=== PATIENT | female | born 1980 | race Caucasian/White ===

== ENCOUNTER 2020-04-29 14:02 | Emergency (ER) | payer SELFPAY ==
[2020-04-29 14:13] VITALS: BP 124/69; PULSE 100; RESP 16; TEMP 36.3; O2SAT 98; BMI 26.5
--- NOTE | 2020-04-29 14:19 | DI.RAD.S_ITS ---
PROCEDURE: XR KNEE LT 3V INDICATIONS: left knee pain aswelling TECHNIQUE: 3 views of the knee were acquired. COMPARISON: None. FINDINGS: Bones: No fractures or dislocations. No suspicious bony lesions. No significant degenerative changes of the knee are appreciated. Soft tissues: There is a knee joint effusion. Small calcific/ossific density is identified within the suprapatellar region on the lateral view that is more lateral in position on the frontal view to be located within the joint, which may represent sequela from prior injury. IMPRESSION: 1. No fracture or significant degenerative changes of the knee. 2. Knee joint effusion. If there is clinical concern for internal derangement, please consider MRI for further evaluation. Dictated by: Adalberto Bronson M.D. on 04/29/2020 at 13:40 Approved by: Adalberto Bronson M.D. on 04/29/2020 at 13:41
[2020-04-29] MEDS: LIDOCAINE PATCH 1 EACH ADH..PATCH TOP (18:25)
[2020-04-29] MEDS: HYDROCODONE/ACET 5/325 TABLET 1 TAB PO (18:25)
--- NOTE | 2020-04-29 19:20 | ED.LOWEXIN ---
HPI - Extremity Injury (Lower) <CORNELL Stark-BC - Last Filed: 04/29/20 19:27> General Chief Complaint: Extremity Injury, Lower Stated Complaint: Left knee blown out about a week ago Time Seen by Provider: 04/29/20 17:34 Source: patient Mode of arrival: Ambulatory Limitations: no limitations History of Present Illness HPI Narrative: The patient is a 39-year-old female current smoker with history of asthma who presents with a chief complaint of left knee pain. She states 2 days ago, she felt a pop in her left knee. She had some pain prior to that, has been using Tylenol Motrin. She denies any specific fall or twist, but does note the pop a few days ago. She denies any previous injuries to her knee. She also requests a refill of her ProAir she is worried she is going to be out of it. She does state have she has a history of asthma, currently has no respiratory complaints. Related Data Previous Rx's Medication Instructions Recorded albuterol sulfate [ProAir HFA] 2 puff INHALATION Q4-6H PRN #18 04/29/20 gram ketorolac 10 mg PO TID PRN #15 tab 04/29/20 lidocaine 1 patch TOP DAILY PRN #15 each 04/29/20 Allergies Allergy/AdvReac Type Severity Reaction Status Date / Time Sulfa (Sulfonamide AdvReac Severe Rash Verified 04/29/20 14:18 Antibiotics) Review of Systems <CORNELL Stark-BC - Last Filed: 04/29/20 19:27> Review of Systems Narrative: GENERAL: Denies chills, fatigue, malaise, fever, sweats. HEENT: Denies sinus pain, ear pain, sore throat, difficulty swallowing, dizziness. RESPIRATORY: Denies dyspnea, cough, wheezing, hemoptysis, sputum. CARDIOVASCULAR: Denies chest pain, palpitations, orthopnea, edema, GASTROINTESTINAL: Denies nausea, vomiting, abdominal pain, diarrhea, constipation, melena. : Denies dysuria, frequency, incontinence, hematuria, urinary retention. MUSCULOSKELETAL: See HPI SKIN: Denies rash, skin lesions, or other NEUROLOGIC: Denies weakness, headache, numbness, change in speech, confusion, seizures, incoordination. PSYCHIATRIC: No concerning psychosocial issues. 12 point review of systems is negative except for those stated above Patient History <CHERELLE Stark - Last Filed: 04/29/20 19:27> Medical History (Updated 04/29/20 @ 19:21 by CHERELLE Stark) Asthma (Acute) Social History Smoking Status: Current every day smoker Smoking Status: Current every day smoker alcohol intake frequency: a few times a month Substance Use Type: does not use Exam <CHERELLE Stark - Last Filed: 04/29/20 19:27> Narrative Exam Narrative: GENERAL: This is a well-nourished, well-developed patient, in no acute distress HEAD: Atraumatic. Normocephalic. No temporal or scalp tenderness. EYES: Pupils equal round and reactive. Extraocular motions intact. No scleral icterus. No injection or drainage. ENT: Nose without bleeding, purulent drainage or septal hematoma. Throat without erythema, tonsillar hypertrophy or exudate. Uvula midline. Airway patent. NECK: Trachea midline. No JVD or lymphadenopathy. Supple, nontender, no meningeal signs. CARDIOVASCULAR: Regular rate and rhythm RESPIRATORY: Clear to auscultation. Breath sounds equal bilaterally. No wheezes, rales, or rhonchi. No cough. No increased respiratory effort. No accessory muscle use. EXTREMITIES: General pain to palpation left knee. Able to lift entire leg off stretcher. Reduced flexion left knee. Negative varus valgus, pain on Boby's. Unable to tolerate anterior posterior drawer. Positive pedal pulses bilaterally for BACK: Nontender without deformity or crepitance. No flank tenderness. NEURO: AOx3. SKIN: No rash or erythema on visible skin. No erythema laceration or abrasion noted of left knee. Initial Vital Signs Initial Vital Signs: Vital Signs Temperature 97.3 F L 04/29/20 14:13 Pulse Rate 100 H 04/29/20 14:13 Respiratory Rate 16 04/29/20 14:13 Blood Pressure 124/69 04/29/20 14:13 Pulse Oximetry 98 04/29/20 14:13 <Mary Soto DO - Last Filed: 05/02/20 08:19> Initial Vital Signs Initial Vital Signs: Vital Signs Temperature 97.3 F L 04/29/20 14:13 Pulse Rate 100 H 04/29/20 14:13 Respiratory Rate 16 04/29/20 14:13 Blood Pressure 124/69 04/29/20 14:13 Pulse Oximetry 98 04/29/20 14:13 Scores <CHERELLE Stark - Last Filed: 04/29/20 19:27> GCS [place] coma scale eye opening: Spontaneous Henry coma scale verbal response: Orientated Henry coma scale motor response: Obey commands [place] coma scale total score: 15 Course <CHERELLE Stark - Last Filed: 04/29/20 19:27> Orders Ordered: Discontinued Medications Hydrocodone Bitart/Acetaminophen ([place] 5/325) 1 tab PO NOW ONE Stop: 04/29/20 17:55 Last Admin: 04/29/20 18:25 Dose: 1 tab Documented by: BTONER Lidocaine (Lidoderm) 1 each TOP NOW ONE Stop: 04/29/20 17:55 Last Admin: 04/29/20 18:25 Dose: 1 each Documented by: BTONER Vital Signs Vital signs: Vital Signs - 8 hr 04/29/20 14:13 Temperature 97.3 F L Pulse Rate 100 H Respiratory Rate 16 Blood Pressure 124/69 Pulse Oximetry 98 <Mary Soto DO - Last Filed: 05/02/20 08:19> Orders Ordered: Discontinued Medications Hydrocodone Bitart/Acetaminophen ([place] 5/325) 1 tab PO NOW ONE Stop: 04/29/20 17:55 Last Admin: 04/29/20 18:25 Dose: 1 tab Documented by: BTONER Lidocaine (Lidoderm) 1 each TOP NOW ONE Stop: 04/29/20 17:55 Last Admin: 04/29/20 18:25 Dose: 1 each Documented by: BTONER Vital Signs Vital signs: Vital Signs - 8 hr 04/29/20 14:13 Temperature 97.3 F L Pulse Rate 100 H Respiratory Rate 16 Blood Pressure 124/69 Pulse Oximetry 98 MDM - Extremity Injury (Lower) <CHERELLE Stark - Last Filed: 04/29/20 19:27> Imaging Data Extremity x-ray #1: Radiologist's Impression: [address] [place] [id number] XRay Report Signed Patient: Lidia Nogueraerine EMR#: [id number] : 1980Acct:[id number] Age/Sex: 39 / FDate of Service: 04/29/20 Loc: ED Accession Number: [id number] Procedure: XR knee LT 3V Ordering Provider: Mary Soto D.O. PROCEDURE: XR KNEE LT 3V INDICATIONS: left knee pain aswelling TECHNIQUE: 3 views of the knee were acquired. COMPARISON: None. FINDINGS: Bones: No fractures or dislocations. No suspicious bony lesions. No significant degenerative changes of the knee are appreciated. Soft tissues: There is a knee joint effusion. Small calcific/ossific density is identified within the suprapatellar region on the lateral view that is more lateral in position on the frontal view to be located within the joint, which may represent sequela from prior injury. IMPRESSION: 1. No fracture or significant degenerative changes of the knee. 2. Knee joint effusion. If there is clinical concern for internal derangement, please consider MRI for further evaluation. Dictated by: Adalberto Bronson M.D. on 04/29/2020 at 13:40 Approved by: Adalberto Bronson M.D. on 04/29/2020 at 13:41 [facility] Narrative Medical decision making narrative: The patient is a 39-year-old female who presents with a chief complaint of left knee pain. She has no acute findings on x-ray, those noted to have a knee effusion. She is neurovascular intact her stay in the emergency department feels much improved after the above-stated therapies. I encouraged follow-up with primary care provider in the next few days as she may need further evaluation, repeat imaging physical therapy etcetera. The patient did request a refill of her albuterol, she is not wheezy at this time, however given that albuterol is a rescue medication I am willing to provider refill. Patient has no questions or concerns upon discharge and states understanding return precautions as well as follow-up care. Discharge Plan Departure Patient Disposition: Home Clinical Impression: Encounter for medication refill Acute knee pain Qualifiers: Laterality: left Qualified Code(s): M25.562 - Pain in left knee Discharge Date/Time: 04/29/20 19:46 Instructions: DI for Knee Sprain, How To Perform RICE (Rest, Ice, Compress, Elevate), DI for Knee Pain Activity Restrictions/Additional Instructions: Thank you for trusting us with your care today. As I discussed, your x-ray shows no acute fracture. This does not rule out a soft tissue injury such as a ligament or tendon injury. It is important that you follow up with primary care provider, especially if worsening or no improvement. There can be fractures that did not show up on initial x-ray. As I discussed, is important that you follow-up with primary care provider as I am suspicious of a soft tissue injury. I have given contact information to the [facility] health information resources manager. I also gave you a prescription for a ProAir refill. I have given you a prescription of Toradol. This is an NSAID. Do not combine it with other NSAIDs such as Aleve or ibuprofen. I suggest taking it with some food, as it can irritate your stomach. Prescriptions: New ketorolac 10 mg tablet 10 mg PO TID PRN (Reason: pain) Qty: 15 RF: 0 albuterol sulfate [ProAir HFA] 90 mcg/actuation HFA aerosol inhaler 2 puff INHALATION Q4-6H PRN (Reason: shortness of breath or wheezing) Qty: 18 RF: 0 lidocaine 5 % adhesive patch,medicated 1 patch TOP DAILY PRN (Reason: pain) Qty: 15 RF: 0 Referrals: [facility] [Outside] <Mary Soto DO - Last Filed: 05/02/20 08:19> Cosign ED Attending Kristinaature Attestation: I was immediately available in the department for consultation. Documentation has been reviewed. I agree with assessment and plan.
[2020-04-29 19:45] VITALS: BP 129/73; PULSE 92; O2SAT 98
== END 2020-04-29 19:46 | disposition home or self-care (01) ==
PROVIDERS: Emergency Provider Nurse Practitioner Family
DX: M25.562 Pain in left knee (principal); Z76.0 Encounter for issue of repeat prescription
CPT/HCPCS: 73562; 99283

== ENCOUNTER 2020-07-07 11:34 | Emergency (ER) | payer SELFPAY ==
[2020-07-07 11:35] VITALS: BP 124/90; PULSE 104; RESP 16; TEMP 36.6; O2SAT 100
--- NOTE | 2020-07-07 11:54 | ED_ITS ---
HPI - Recheck/Abnormal Lab/Rx <Yulia Carmichael PA-C - Last Filed: 07/07/20 12:32> General Chief Complaint: Recheck/Abnormal Lab/Rx Stated Complaint: panic attack, really low on her meds Time Seen by Provider: 07/07/20 11:54 Source: patient Mode of arrival: Ambulatory Limitations: no limitations History of Present Illness HPI narrative: 40-year-old woman with a history of asthma, panic attacks and general anxiety presents with complaints of a panic attack this morning with symptoms of heart racing, chest pressure, abdominal pain and fear consistent with her historic panic attacks. She has been dealing with severe panic attacks for over 10 years, and has been taking clonazepam for the past 2+ years. She states she has tried multiple other medications including anti anxiety and an tidepression medications she also has done counseling regularly. She moved to the area from [place] a couple months ago and is working to establish care she currently has an appointment set up for [facility] for primary care and mental health care on July 21. She is starting a new job in 2 days and has been having worse anxiety related to this. She also has been gradually trying to decrease her dose of clonazepam she was taking up to 4 mg a day and was prescribed 120 mg at her last prescription from her doctor in [place], she has been trying to get by with smaller amounts over the past month. She is concerned that she only has 2 of her pills left and her appointment is not until the 21 of July, with starting a new job she is very concerned that she is going to continue to have panic attacks as she did this morning. She denies any current chest pain, abdominal pain, chest pressure, palpitations, difficulty breathing or any other symptoms, states that her symptoms this morning with her panic attack were no different than previous panic attacks.. She states that she has current medications for her Symbicort and albuterol inhaler does not need these refilled. complaint: medication refill request and other (anxiety, panic attack) Onset/Timin Initial visit (ago): hour(s) Returns today for: request for prescription Associated symptoms: none Related Data Home Medications Medication Instructions Recorded Confirmed clonazepam 1 mg PO QID 07/07/20 07/07/20 Previous Rx's Medication Instructions Recorded albuterol sulfate [ProAir HFA] 2 puff INHALATION Q4-6H PRN #18 04/29/20 gram clonazepam 1 mg PO BID #30 tab MDD 4mg 07/07/20 Allergies Allergy/AdvReac Type Severity Reaction Status Date / Time Sulfa (Sulfonamide AdvReac Severe Rash Verified 07/07/20 12:01 Antibiotics) Review of Systems <Yulia Carmichael PA-C - Last Filed: 07/07/20 12:32> Review of Systems Narrative: GENERAL: Denies chills, fatigue, malaise, fever, sweats. HEENT: Denies sinus pain, ear pain, sore throat, difficulty swallowing, dizziness. RESPIRATORY: Denies dyspnea, cough, wheezing, hemoptysis, sputum. CARDIOVASCULAR: Positive for chest pain/tightness with panic attacks, positive for palpitations with panic attacks, orthopnea, edema, GASTROINTESTINAL: Denies nausea, vomiting, positive for abdominal pain/tightness and squeezing when she is having a panic attack, negative for diarrhea, const ipation, melena. : Denies dysuria, frequency, incontinence, hematuria, urinary retention. MUSCULOSKELETAL: denies weakness, joint pain, or bony pain SKIN: Denies rash, skin lesions, or other NEUROLOGIC: Denies weakness, headache, numbness, change in speech, confusion, seizures, incoordination. PSYCHIATRIC: Positive for generalized anxiety, fear with panic attacks, No concerning psychosocial issues. 12 point review of systems is negative except for those stated above Patient History <Yulia Carmichael PA-C - Last Filed: 07/07/20 12:32> Medical History Asthma (Acute) Social History Smoking Status: Current every day smoker Smoking Status: Current every day smoker alcohol intake frequency: a few times a month Substance Use Type: does not use Exam <Yulia Carmichael PA-C - Last Filed: 07/07/20 12:32> Narrative Exam Narrative: GENERAL: 40 year old patient appears stated age. Well-nourished, well-developed patient, in mild distress. HEAD: Atraumatic. Normocephalic. EYES: Pupils equal round and reactive. Extraocular motions intact. No scleral icterus. No injection or drainage. ENT: Nose without bleeding, purulent drainage. Throat without erythema, tonsillar hypertrophy or exudate. Airway patent. NECK: Trachea midline. Non tender CARDIOVASCULAR: Regular rate and rhythm without murmurs, gallops, or rubs. RESPIRATORY: Clear to auscultation. Breath sounds equal bilaterally. No wheezes, rales, or rhonchi. GASTROINTESTINAL: Abdomen soft, non-tender, nondistended. EXTREMITIES: No edema or joint tenderness. BACK: Nontender without deformity or crepitance. No flank tenderness. NEURO: AOx3. SKIN: No rash or erythema of visible areas Initial Vital Signs Initial Vital Signs: Vital Signs Temperature 97.8 F 07/07/20 11:35 Pulse Rate 104 H 07/07/20 11:35 Respiratory Rate 16 07/07/20 11:35 Blood Pressure 124/90 07/07/20 11:35 Pulse Oximetry 100 07/07/20 11:35 <Mary Soto DO - Last Filed: 07/09/20 07:08> Initial Vital Signs Initial Vital Signs: Vital Signs Temperature 97.8 F 07/07/20 11:35 Pulse Rate 104 H 07/07/20 11:35 Respiratory Rate 16 07/07/20 11:35 Blood Pressure 124/90 07/07/20 11:35 Pulse Oximetry 100 07/07/20 11:35 Scores <Yulia Carmichael PA-C - Last Filed: 07/07/20 12:32> GCS [place] coma scale eye opening: Spontaneous [place] coma scale verbal response: Orientated [place] coma scale motor response: Obey commands [place] coma scale total score: 15 Course <Yulia Carmichael PA-C - Last Filed: 07/07/20 12:32> Course Course Narrative: Patient had a pill bottle with her with prescription in her name for 1 mg up to 4 times daily, 120 mg total from a previous provider. Vital Signs Vital signs: Vital Signs - 8 hr 07/07/20 11:35 Temperature 97.8 F Pulse Rate 104 H Respiratory Rate 16 Blood Pressure 124/90 Pulse Oximetry 100 <Mary Soto DO - Last Filed: 07/09/20 07:08> Vital Signs Vital signs: Vital Signs - 8 hr 07/07/20 11:35 Temperature 97.8 F Pulse Rate 104 H Respiratory Rate 16 Blood Pressure 124/90 Pulse Oximetry 100 [facility] - Recheck/Abnormal Lab/Rx <Yulia Carmichael PA-C - Last Filed: 07/07/20 12:32> Differential Diagnosis Differential diagnosis: Likely encounter for medication refill and other (Anxiety, panic attacks) Medical Records Attestation: I reviewed the patient's medical records. [facility] Narrative Medical decision making narrative: Well-appearing 40-year-old with history of asthma, anxiety and panic attacks presents with concern for panic attack this morning, and running very low on her anxiety and panic attack medication, c lonazepam. Both RN and myself discussed the fact that this addictive medication is not something we typically prescribe for patients from the emergency department, and is really not an ideal long-term medication for this as there are other options out there. Patient has been on medication for 2 years, presents with a prescription pill bottle for 120 mg up to 4 times daily. She had a panic attack this morning, has been taking smaller doses of her medication recently due to running low, starting a new job in 2 days and has a new provider appointment scheduled for mid July in 2 weeks. Given her appropriateness, history, and previous prescription, and the fact that I do not want her to go into withdrawals, I did prescribe a 1mg BID as needed 2 week prescription for clonazepam to get her to her scheduled appointment at [facility]. She has tried multiple other medications, and has been doing counseling for her anxiety and panic attacks for many years. I do not suspect any acute illness that would require workup with labs or imaging today. Emergency return precautions provided, all questions answered. Discharge Plan Departure Patient Disposition: Home Clinical Impression: Encounter for medication refill, Anxiety, Panic attacks Discharge Date/Time: 07/07/20 12:30 Activity Restrictions/Additional Instructions: Thank you for letting us to be part of your care in the emergency department today. After our discussion I have prescribed do a short course of clonazepam to help with your panic disorder and anxiety, because you have an appointment scheduled and are establishing care with a PCP/mental health in the next 2 weeks. As we discussed this is an addictive medication, and you have been on it for some time you should continue to explore other options for your panic disorder and anxiety with your new providers. There is no evidence of an emergent or life threatening illness at this time, but follow up with your doctor in 1-2 days is recommended nonetheless to continue to rule out serious underlying causes of your symptoms. Please call the office for an appointment. Please return to the Emergency Department for any worsening or persistent symptoms. Please take medications as directed. Prescriptions: New clonazepam 1 mg tablet 1 mg PO BID MDD 4mg Qty: 30 RF: 0 No Action clonazepam 1 mg Tablet 1 mg PO QID RF: 0 albuterol sulfate [ProAir HFA] 90 mcg/actuation HFA aerosol inhaler 2 puff INHALATION Q4-6H PRN (Reason: shortness of breath or wheezing) Qty: 18 RF: 0 <Mary Soto DO - Last Filed: 07/09/20 07:08> [facility] Kristinaature Attestation: I was immediately available in the department for consultation. Documentation has been reviewed. I agree with assessment and plan.
== END 2020-07-07 12:30 | disposition home or self-care (01) ==
PROVIDERS: Emergency Provider Student in an Organized Health Care Education/Training Program
DX: F41.0 Panic disorder [episodic paroxysmal anxiety] (principal); Z76.0 Encounter for issue of repeat prescription
CPT/HCPCS: 99281

== ENCOUNTER → 2020-12-10 08:22 | Outpatient (CLI) | payer OTHER, SELFPAY ==
--- NOTE | 2020-12-10 08:24 | DI.RAD.S_ITS ---
PROCEDURE: XR CERVICAL SPINE 2V OR 3V INDICATIONS: Chronic neck pain TECHNIQUE: 3 view(s) of the cervical spine were acquired. COMPARISON: None. FINDINGS: Bones: No fractures or dislocations to the T1 level. The lateral masses of C1 appear intact on the odontoid view. No suspicious bony lesions. There is slight anterolisthesis of C4 on C5 and moderately severe degenerative disc disease of C5 on C6 with slight retrolisthesis at this level. Soft tissues: No prevertebral soft tissue swelling. IMPRESSION: No prior trauma found. Moderately severe degenerative disc disease C5-6 with a slight degree of grade 1 retrolisthesis of C5 on C6 and at the C4-C5 level there is also slight grade 1 anterolisthesis noted. Obtaining flexion and extension imaging may be warranted to assess for instability given these findings. Dictated by: Vinny Padilla M.D. on 12/10/2020 at 9:41 Approved by: Vinny Padilla M.D. on 12/10/2020 at 9:43
== END ==
PROVIDERS: PCP Family Medicine; Referring Provider Family Medicine; Visit Provider Family Medicine
DX: M50.322 Other cervical disc degeneration at C5-C6 level (principal); G89.29 Other chronic pain
CPT/HCPCS: 72040

== ENCOUNTER → 2020-12-22 08:34 | Outpatient (CLI) | payer OTHER, SELFPAY ==
[2020-12-22 10:55] LABS: Urine N gonorrhoeae NOT DETECTED
[2020-12-22 10:59] LABS: Urine Chlamydia NOT DETECTED
== END ==
PROVIDERS: PCP Family Medicine; Referring Provider Family Medicine; Visit Provider Family Medicine
DX: N89.8 Other specified noninflammatory disorders of vagina (principal)
CPT/HCPCS: 87491; 87591

== ENCOUNTER → 2021-01-05 08:44 | Outpatient (CLI) | payer OTHER, SELFPAY ==
--- NOTE | 2021-01-05 08:46 | DI.RAD.S_ITS ---
PROCEDURE: XR CERVICAL SPINE 4V OR 5V INDICATIONS: Severe neck pain with anterolisthesis and retrolisthesis TECHNIQUE: 5 views of the cervical spine were acquired. COMPARISON: [facility], , XR CERVICAL SPINE 2V OR 3V, 12/10/2020, 8:26. FINDINGS: Bones: No fractures or dislocations to the T1 level. No suspicious bony lesions. There is normal range of motion between flexion and extension, with preserved normal bony alignment. No change in malalignment, mild in severity, from the comparison study in December of 2020. Soft tissues: Prevertebral soft tissues are normal in thickness. IMPRESSION: The degenerative disc disease previously present and considered most prominent at C5-6 is associated with slight anterolisthesis of C4 on C5 and minimal retrolisthesis of C5 on C6. During flexion and extension imaging when compared to neutral position imaging there is no significant change in this alignment. Dictated by: Vinny Padilla M.D. on 01/05/2021 at 10:18 Approved by: Vinny Padilla M.D. on 01/05/2021 at 10:20
== END ==
PROVIDERS: PCP Family Medicine; Referring Provider Family Medicine; Visit Provider Family Medicine
DX: M47.812 Spondylosis without myelopathy or radiculopathy, cervical region (principal); M50.322 Other cervical disc degeneration at C5-C6 level
CPT/HCPCS: 72050

== ENCOUNTER 2021-05-27 08:06 | Emergency (ER) | payer OTHER, MEDICAID, SELFPAY ==
[2021-05-27] VITALS (8 sets, daily range): BP systolic 105–117; BP diastolic 56–70; PULSE 56–70; RESP 17–18; TEMP 36.1–36.6; O2SAT 95–100; BMI 27.3
--- NOTE | 2021-05-27 08:49 | DI.CT.S_ITS ---
PROCEDURE: CT CHEST ABD PEL W CON INDICATIONS: pelvic mass TECHNIQUE: After the administration of intravenous contrast, 5 mm thick sections acquired from the lung apices to the symphysis. 5 mm coronal and sagittal reformats were performed, with additional 7 mm MIP reformats through the lungs. For radiation dose reduction, the following was used: automated exposure control, adjustment of mA and/or kV according to patient size. COMPARISON: [facility], CT, CT ABDOMEN PELVIS WITH CONTRAST, 05/18/2021, 14:33. FINDINGS: Image quality: Excellent. CHEST: Lungs and pleura: No acute airspace opacities. No pleural effusions or pneumothorax. Central and peripheral airways appear patent and normal in caliber. Mediastinum: Heart size is normal. No pericardial effusion. No mediastinal or hilar adenopathy by size criteria. Thoracic aorta and central pulmonary arteries are normal in size. Esophagus is normal in caliber. No hiatal hernia. Chest wall: No axillary or supraclavicular adenopathy by size criteria. Thyroid gland is unremarkable.. ABDOMEN: Solid organs: Liver is normal in size and enhancement. Gallbladder is within normal limits. Biliary system is non dilated. Pancreas enhances normally. Spleen is normal in size and enhancement. No adrenal nodules. Kidneys demonstrate normal size and enhancement, without hydronephrosis. Peritoneum and bowel: Bowel loops demonstrate normal wall thickness and caliber. No free fluid or air. Appendix is visualized and is within normal limits. Nodes and vessels: No retroperitoneal or mesenteric adenopathy by size criteria. Aorta and inferior vena cava are normal in size. Miscellaneous: No ventral hernias. PELVIS: Genitourinary: Bladder wall thickness is normal. Patient's known large uterine mass arising from anterior wall of uterus is again seen currently measures up to 11.3 x 11.1 x 10.8 cm in largest transverse, AP and craniocaudal dimensions unchanged from prior study measuring at the same level series 6 image 107 and series 10 image 35. Heterogeneous contrast enhancement is noted within this lesion. No gross abnormality is seen in bilateral ovaries. Left ovarian cyst measures 1.9 cm is seen. Miscellaneous: No inguinal hernias or adenopathy. Bones: No suspicious bony lesions. No vertebral body compression fractures. IMPRESSION: 1. Again noted is large anterior wall uterine mass not significantly changed in size and appearance from previous CT study measuring at the same level. 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 2. Small left ovarian cyst as above. 3. No evidence of metastatic disease is seen in chest, abdomen or pelvis. No lymphadenopathy. Dictated by: Dustin Carrasquillo M.D. on 05/27/2021 at 10:30 Approved by: Dustin Carrasquillo M.D. on 05/27/2021 at 10:44
--- NOTE | 2021-05-27 08:54 | DI.CT.S_ITS ---
PROCEDURE: CT HEAD/BRAIN WO CON INDICATIONS: dizzy with mass TECHNIQUE: Noncontrast 4.5 mm thick angled axial sections acquired from the foramen magnum to the vertex, with coronal and sagittal reformats. For radiation dose reduction, the following was used: automated exposure control, adjustment of mA and/or kV according to patient size. COMPARISON: None. FINDINGS: Image quality: Excellent. CSF spaces: Basal cisterns are patent. No extra-axial fluid collections. Ventricles are normal in size and shape. Brain: No midline shift. No intracranial masses or hemorrhage. Florez-white matter interface is normal. Skull and face: Calvarium and visualized facial bones are intact, without suspicious lesions. Sinuses: Visualized sinuses and mastoids are clear. IMPRESSION: No acute intracranial abnormality. Dictated by: Bam Carter M.D. on 05/27/2021 at 9:53 Approved by: Bam Carter M.D. on 05/27/2021 at 9:54
[2021-05-27 09:07] LABS: Add Manual Diff / Slide Review NO; Basophils Absolute Auto 100 /uL (0-100); Basophils Percent Auto 1.5 % (0-2); Eosinophils Absolute Auto 400 /uL (0-450); Eosinophils Percent Auto 5.1 % (2-4); Hematocrit 43.4 % (36-46); Hemoglobin 14.5 g/dL (12.0-16.0); Lymphocytes Absolute Auto 2400 /uL (1100-4500); Lymphocytes Percent Auto 35.3 % (25-40); Mean Corpuscular HGB Conc 33.4 % (30-36); Mean Corpuscular Hemoglobin 30.3 PG (26-34); Mean Corpuscular Volume 90.7 fL (80-100); Monocytes Absolute Auto 500 /uL (0-900); Neutrophils Absolute Auto 3600 /uL (1500-7000); Neutrophils Percent Auto 51.1 % (50-75); Platelet Count 264 X10^3/uL (150-400); Red Blood Cell Count 4.78 X10^6/uL (4.0-5.2); Red Cell Distribution Width 13.7 % (11.6-14.8); White Blood Cell Count 6.9 X10^3/uL (4.5-11.0)
[2021-05-27] MEDS: KETOROLAC 30 MG/ML VIAL IV (09:12)
[2021-05-27] MEDS: SODIUM CHLORIDE 0.9% 1,000 ML 1000 ML IV (09:13)
[2021-05-27 09:15] LABS: Alanine Aminotransferase 35 IU/L (<35); Albumin 3.9 g/dL (3.5-5.0); Albumin Globulin Ratio 1.3 (1.0-2.8); Alkaline Phosphatase 37 U/L (38-126); Aspartate Aminotransferase 35 IU/L (14-36); BUN Creatinine Ratio 14.3 (6-22); Bilirubin Total 0.4 mg/dL (0.2-1.3); Blood Urea Nitrogen 9 mg/dL (7-17); Calcium 9.1 mg/dL (8.4-10.2); Carbon Dioxide 27 mmol/L (22-32); Chloride 108 mmol/L (98-107); Estimated Glomerular Filt Rate > 60.0 mL/min (>60); Globulin 2.9 g/dL (1.7-4.1); Glucose 91 mg/dL (70-100); HEMOLYSIS < 15 (0-50); Lipase 64 U/L (23-300); Potassium 4.2 mmol/L (3.4-5.1); Pregnancy Test Serum,Qual Negative (Negative); Sodium 137 mmol/L (137-145); Total Protein 6.8 g/dL (6.3-8.2)
[2021-05-27] MEDS: ONDANSETRON 4 MG/2 ML INJ IV (11:50)
[2021-05-27] MEDS: HYDROMORPHONE 0.5 MG INJ IV (11:50)
--- NOTE | 2021-05-27 12:01 | ED.ABDPAIN ---
HPI - Abdominal Pain General Chief Complaint: Abdominal Pain Stated Complaint: stomach bloating/mass 11cm/abd pain Time Seen by Provider: 05/27/21 08:39 Source: patient Mode of arrival: Ambulatory Limitations: no limitations History of Present Illness HPI narrative: Patient is a 40-year-old female presenting with abdominal pain. She states that she was recently diagnosed with 11 x [address] [facility] walk-in clinic. Not sure of the imaging that was done. She supposedly has an appointment to see a specialist and triage registered nurse possibly at [place] although she mention [facility] as well her insurance changed yesterday to [employer]. Today she is having increasing pain she denies any vaginal bleeding in fact she says her menstrual cycles completely often she has not had 1 in about 2 months. She denies any nausea or vomiting. She has no chest pain or shortness of breath. She has also noticed some dizziness and balance issues as well. She has not fallen. States she is dizzy frequently. Related Data Previous Rx's Medication Instructions Recorded fluticasone 100 mcg-salmeterol 50 1 inh INHALATION BID #60 ea 01/26/21 mcg/dose blistr powdr for inhalation (Advair Diskus) venlafaxine 75 mg capsule,extended 75 mg PO DAILY #90 cap 01/27/21 release 24 hr albuterol sulfate 90 mcg/actuation 2 puff INHALATION Q4-6H PRN #18 03/01/21 aerosol inhaler (ProAir HFA) gram clonazepam 1 mg tablet 1 mg PO TID PRN #90 tab 03/01/21 metronidazole 500 mg tablet 500 mg PO BID #14 tab 04/13/21 (Flagyl) tramadol 50 mg tablet 50 mg PO TID PRN #60 tab 05/16/21 hydrocodone 5 mg-acetaminophen 325 1 tab PO Q6H PRN #10 tab 05/27/21 mg tablet Allergies Allergy/AdvReac Type Severity Reaction Status Date / Time Sulfa (Sulfonamide AdvReac Severe Rash Verified 03/01/21 15:28 Antibiotics) Review of Systems Review of Systems Narrative: GENERAL: Denies chills, fatigue, malaise, fever, sweats, travel HEENT: Denies sinus pain, ear pain, sore throat, difficulty swallowing, neck pain RESPIRATORY: Denies dyspnea, cough, wheezing, hemoptysis, sputum. CARDIOVASCULAR: Denies chest pain, palpitations, orthopnea, edema GASTROINTESTINAL: See HPI [employer] OPERATOR: See HPI : Denies dysuria, frequency, incontinence, hematuria, urinary retention, flank pain. MUSCULOSKELETAL: Denies weakness, joint pain, or bony pain SKIN: No rash, no erythema, no pruritus NEUROLOGIC: + dizziness PSYCHIATRIC: No concerning psychosocial issues. 12 point review of systems is negative except for those stated above and HPI Patient History Medical History (Updated 05/27/21 @ 12:03 by Mary Soto DO) Asthma (~1989) Cervical radiculopathy Cervical spine degeneration Chronic back pain (~2000) Chronic headache Chronic neck pain Fibroids (~2014) Mixed anxiety and depressive disorder (~2008) Shoulder pain (~2019) Surgical History S/P wisdom tooth extraction Family History Father Acute Crohn's disease Social History Smoking Status: Current every day smoker Smoking Status: Current every day smoker alcohol intake frequency: a few times a month Substance Use Type: does not use Exam Initial Vital Signs Initial Vital Signs: Vital Signs Temperature 98 F 05/27/21 08:35 Pulse Rate 70 05/27/21 08:35 Respiratory Rate 17 05/27/21 08:35 Blood Pressure 117/65 05/27/21 08:35 Pulse Oximetry 99 05/27/21 08:35 GENERAL: Well-appearing, well-nourished and in no acute distress. HEENT: Head atraumatic,EOMI, pupils reactive, face symmetric, moist mucous membranes CARDIOVASCULAR: Regular rate and rhythm without murmurs, rubs or gallops. RESPIRATORY: Breath sounds equal bilaterally, no wheezes rales or rhonchi. ABDOMEN: Soft, nontender. Normoactive bowel sounds all 4 quadrants. No guarding or rebound. EXTREMITIES: Normal range of motion, no clubbing or edema. Neurovascularly intact NEUROLOGICAL: Alert and oriented x4.Normal gait and speech. SKIN: Warm, dry, no laceration, no petechiae, no rashes or lesions. Course Orders Ordered: ED Orders 05/27/21 08:35 Complete Blood Count AUTO DIFF Stat Comprehensive Metabolic Panel Stat Lipase Stat Test Serum,Qual Stat 05/27/21 08:49 CT chest abd pel w con Stat 05/27/21 08:54 CT head/brain wo con Stat Discontinued Medications Hydromorphone HCl (Hydromorphone 0.5 Mg Inj) 0.5 mg IV NOW ONE Stop: 05/27/21 11:44 Last Admin: 05/27/21 11:50 Dose: 0.5 mg Documented by: TARIQ Sodium Chloride (Normal Saline 0.9%) 1,000 mls @ 1,000 mls/hr IV BOLUS ONE Stop: 05/27/21 09:53 Last Infusion: 05/27/21 11:50 Dose: 0 mls/hr Documented by: Admin: 05/27/21 09:13 Dose: 1,000 mls/hr Documented by: TARIQ Ketorolac Tromethamine (Ketorolac 30 Mg/Ml Vial) 30 mg IV NOW ONE Stop: 05/27/21 08:55 Last Admin: 05/27/21 09:12 Dose: 30 mg Documented by: TARIQ Morphine Sulfate (Morphine 4 Mg/Ml Inj) 4 mg IV NOW ONE Stop: 05/27/21 11:35 Last Admin: 05/27/21 11:43 Dose: Not Given Documented by: TARIQ Ondansetron HCl (Ondansetron 4 Mg/2 Ml Inj) 4 mg IV NOW ONE Stop: 05/27/21 11:35 Last Admin: 05/27/21 11:50 Dose: 4 mg Documented by: TARIQ Vital Signs Vital signs: Vital Signs - 8 hr 05/27/21 08:35 05/27/21 08:37 05/27/21 09:00 Temperature 98 F Pulse Rate 70 63 59 L Respiratory Rate 17 Blood Pressure 117/65 106/70 Pulse Oximetry 99 100 97 05/27/21 09:30 05/27/21 09:49 05/27/21 09:50 Temperature Pulse Rate 66 57 L Respiratory Rate Blood Pressure 107/57 L Pulse Oximetry 100 95 05/27/21 09:52 05/27/21 11:15 Temperature 96.9 F L Pulse Rate 65 56 L Respiratory Rate 17 18 Blood Pressure 107/57 L 105/56 L Pulse Oximetry 98 100 MDM - Abdominal Pain Lab Data Result diagrams: 05/27/21 08:35 05/27/21 08:35 Labs: Lab Results 05/27/21 05/27/21 05/27/21 Range/Units 08:35 08:35 08:35 WBC 6.9 (4.5-11.0) X10^3/uL RBC 4.78 (4.0-5.2) X10^6/uL Hgb 14.5 (12.0-16.0) g/dL Hct 43.4 (36-46) % MCV 90.7 (80-100) fL MCH 30.3 (26-34) PG MCHC 33.4 (30-36) % RDW 13.7 (11.6-14.8) % Plt Count 264 (150-400) X10^3/uL Neut % (Auto) 51.1 (50-75) % Lymph % (Auto) 35.3 (25-40) % [place] % (Auto) 7.0 (3-14) % Eos % (Auto) 5.1 H (2-4) % Baso % (Auto) 1.5 (0-2) % Neut # (Auto) 3600 (2549-4643) /uL Lymph # (Auto) 2400 (7734-7523) /uL [place] # (Auto) 500 (0-900) /uL Eos # (Auto) 400 (0-450) /uL Baso # (Auto) 100 (0-100) /uL Sodium 137 (137-145) mmol/L Potassium 4.2 (3.4-5.1) mmol/L Chloride 108 H (98-107) mmol/L Carbon Dioxide 27 (22-32) mmol/L BUN 9 (7-17) mg/dL Creatinine 0.63 (0.52-1.04) mg/dL Estimated GFR > 60.0 (>60) mL/min BUN/Creatinine Ratio 14.3 (6-22) Glucose 91 (70-100) mg/dL Calcium 9.1 (8.4-10.2) mg/dL Total Bilirubin 0.4 (0.2-1.3) mg/dL AST 35 (14-36) IU/L ALT 35 H (<35) IU/L Alkaline Phosphatase 37 L (38-126) U/L Total Protein 6.8 (6.3-8.2) g/dL Albumin 3.9 (3.5-5.0) g/dL Globulin 2.9 (1.7-4.1) g/dL Albumin/Globulin Ratio 1.3 (1.0-2.8) Lipase 64 (23-300) U/L Serum , Qual Negative (Negative) Point of care testing: Point of Care Testing Test Results Negative Urine Dip Bedside Urine Glucose Negative Bedside Urine Bilirubin - Negative Bedside Urine Ketone - Negative Urine Specific Mccammon 1.010 Bedside Urine Occult Blood - Negative Bedside Urine pH 6.5 Bedside Urine Protein - Negative Bedside Urine Urobilinogen - Negative Bedside Urine Nitrite - Negative Bedside Urine Leukocytes - Negative Esterase Imaging Data CT scan - head: Radiologist's Impression: PROCEDURE: CT HEAD/BRAIN WO CON INDICATIONS: dizzy with mass TECHNIQUE: Noncontrast 4.5 mm thick angled axial sections acquired from the foramen magnum to the vertex, with coronal and sagittal reformats. For radiation dose reduction, the following was used: automated exposure control, adjustment of mA and/or kV according to patient size. COMPARISON: None. FINDINGS: Image quality: Excellent. CSF spaces: Basal cisterns are patent. No extra-axial fluid collections. Ventricles are normal in size and shape. Brain: No midline shift. No intracranial masses or hemorrhage. Florez-white matter interface is normal. Skull and face: Calvarium and visualized facial bones are intact, without suspicious lesions. Sinuses: Visualized sinuses and mastoids are clear. IMPRESSION: No acute intracranial abnormality. Dictated by: Bam Carter M.D. on 05/27/2021 at 9:53 Approved by: Bam Carter M.D. on 05/27/2021 at 9:54 CT scan - abdomen/pelvis: Radiologist's Impression: PROCEDURE: CT HEAD/BRAIN WO CON INDICATIONS: dizzy with mass TECHNIQUE: Noncontrast 4.5 mm thick angled axial sections acquired from the foramen magnum to the vertex, with coronal and sagittal reformats. For radiation dose reduction, the following was used: automated exposure control, adjustment of mA and/or kV according to patient size. COMPARISON: None. FINDINGS: Image quality: Excellent. CSF spaces: Basal cisterns are patent. No extra-axial fluid collections. Ventricles are normal in size and shape. Brain: No midline shift. No intracranial masses or hemorrhage. Florez-white matter interface is normal. Skull and face: Calvarium and visualized facial bones are intact, without suspicious lesions. Sinuses: Visualized sinuses and mastoids are clear. IMPRESSION: No acute intracranial abnormality. Dictated by: Bam Carter M.D. on 05/27/2021 at 9:53 Approved by: Bam Carter M.D. on 05/27/2021 at 9:54 MDM Narrative Medical decision making narrative: The patient is found to have a large 11 by 11 cm mass under uterus. Discussed a need biopsy she is aware she may need a hysterectomy as well. She is scheduled to see a specialist the beginning of June. I believe she is set up with [facility] at [place] however cannot be certain. At This time I recommend she continue with appointment. Pain will be controlled with medication. She is given a disc of her imaging as well. Discharge Plan Departure Patient Disposition: Home Clinical Impression: Mass of uterus Instructions: Uterine Fibroids Activity Restrictions/Additional Instructions: *You have been diagnosed with uterine mass *What to do: At this time he will need to wait to see a specialist for further plan. Possible hysterectomy versus biopsy. At this time pain control only. *Continue to take medications as directed Hydrocodone 1 tablet every 6 hours if needed for severe pain *Follow up with your primary care provider in 2-3 days *Return to ER if you should have increasing pain, heavy vaginal bleeding more than 2 super pads or tampons in 1 hour, dizziness, lightheadedness, persistent vomiting, fever or any new, worsening or concerning symptoms Prescriptions: New hydrocodone-acetaminophen 5-325 mg tablet 1 tab PO Q6H PRN (Reason: pain) Qty: 10 RF: 0 No Action fluticasone propion-salmeterol [Advair Diskus] 100-50 mcg/dose blister with device 1 inh inhalation BID Qty: 60 RF: 3 albuterol sulfate [ProAir HFA] 90 mcg/actuation HFA aerosol inhaler 2 puff INHALATION Q4-6H PRN (Reason: shortness of breath or wheezing) Qty: 18 RF: 2 metronidazole [Flagyl] 500 mg tablet 500 mg PO BID Qty: 14 RF: 0 tramadol 50 mg tablet 50 mg PO TID PRN (Reason: pain) Qty: 60 RF: 3 venlafaxine 75 mg capsule,extended release 24hr 75 mg PO DAILY Qty: 90 RF: 1 clonazepam 1 mg tablet 1 mg PO TID PRN (Reason: anxiety) Qty: 90 RF: 3 Referrals: Tony García MD [Primary Care Provider] -
== END 2021-05-27 12:15 | disposition home or self-care (01) ==
PROVIDERS: Emergency Provider Emergency Medicine; PCP Family Medicine
DX: N85.8 Other specified noninflammatory disorders of uterus (principal); R42 Dizziness and giddiness
CPT/HCPCS: 36415; 70450; 71260; 74177; 80053; 81003; 81025; 83690; 84703; 85025; 96361; 96374; 96375; 99284; J1170; J1885; J2405; Q9967